=== PATIENT | female | born 1995 | race Two or more races ===

== ENCOUNTER 2025-03-04 23:14 | Emergency (ER) | payer MEDICAID, OTHER ==
[~2025-03-04] VITALS: Ht 175.3 cm; Wt 74.8 kg
[2025-03-05 00:49] LABS: PLATELET COUNT (AUTO) 218 K/uL (150-450); RED BLOOD CELL COUNT(AUTO) 5.50 MIL/uL (4.0-5.2); RED CELL DISTRIBUTION WIDTH 14.5 % (11.5-15.0); WHITE BLOOD COUNT (AUTO) 10.9 K/uL (4.3-11.0)
[2025-03-05] MEDS ORDERED: TDAP [DIPH/PERTUSSIS/TET] 0.5 ML VIAL IM ONE (00:50)
[2025-03-05] MEDS ORDERED: KETOROLAC TROMETHAMINE INJ 30 MG/ML VIAL ONE (00:50)
[2025-03-05] MEDS ORDERED: CT SWABBABLE VALVE TRANS SET 1 EA INFUS.SET MC ONE (00:51)
[2025-03-05] MEDS ORDERED: IV NS 0.9% 250 ML IV ONE (00:51)
[2025-03-05] MEDS ORDERED: IOHEXOL-300 100 ML VIAL IV ONE (00:51)
[2025-03-05] MEDS: KETOROLAC TROMETHAMINE INJ 30 MG/ML VIAL IV ONE (00:54)
[2025-03-05 00:55] LABS: CALCIUM, SERUM 9.2 mg/dL (8.5-10.1); CREATININE 0.8 mg/dL (0.6-1.3); SODIUM SERUM 142.0 mmol/L (136-145); UREA NITROGEN, BLOOD 7.0 mg/dL (7-18)
[2025-03-05 01:00] LABS: ALCOHOL, BLOOD 147.0 mg/dL (0-10); ASPARTATE AMINOTRANSFERASE 46.0 U/L (15-37); TOTAL PROTEIN, SERUM 9.1 g/dL (6.4-8.2)
[2025-03-05] MEDS: TDAP [DIPH/PERTUSSIS/TET] 0.5 ML VIAL IM ONE (01:03)
[2025-03-05] MEDS: IV NS 0.9% 1,000 ML IV ONE (01:47)
[2025-03-05 02:01] LABS: APPEARANCE,URINE CLEAR (CLEAR); BLOOD, URINE TRACE-INTA Ery/uL (NEGATIVE); LEUKOCYTE ESTERASE ,URINE NEGATIVE (NEGATIVE); NITRITE, URINE NEGATIVE (NEGATIVE); UGLUCOSE NEGATIVE (NEGATIVE)
[2025-03-05 02:04] LABS: PREGNANCY TEST URINE QUAL NEGATIVE (NEGATIVE)
[2025-03-05 02:13] VITALS: BP 122/78; TEMP 98.1; O2SAT 98
[2025-03-05 02:15] LABS: ADD URINE CULTURE YES
[2025-03-05 02:17] LABS: AMPHETAMINE, URINE NEGATIVE (NEGATIVE); BARBITURATE, URINE NEGATIVE (NEGATIVE); BENZODIAZEPINE, URINE NEGATIVE (NEGATIVE); CANNABINOID, URINE POSITIVE (NEGATIVE); COCCAINE, URINE NEGATIVE (NEGATIVE); OPIATE, URINE NEGATIVE (NEGATIVE)
== END 2025-03-05 02:14 | disposition home or self-care (01) ==
LOC: ER 23:15
DX: S01.511A Laceration without foreign body of lip, initial encounter (principal); R10.21 Pelvic and perineal pain right side; Z88.0 Allergy status to penicillin; Z79.899 Other long term (current) drug therapy; V89.2XXA Person injured in unspecified motor-vehicle accident, traffic, initial encounter; Y93.89 Activity, other specified; Y92.410 Unspecified street and highway as the place of occurrence of the external cause; Y99.8 Other external cause status
CPT/HCPCS: 99285; 96374; 90471; 96361; 90715; 71260; 70450; 70486; 74177; 85025; 87086; 84703; 81001; 36415; 80053; 80320; 80307; J1885; J7030; J7050; Q9967; G0480